=== PATIENT | female | born 1970 | race Caucasian/White ===

== ENCOUNTER 2020-12-13 19:23 | Emergency (ER) | payer OTHER ==
[~2020-12-13] VITALS: Ht 167.6 cm; Wt 69.4 kg
[2020-12-13 19:30] VITALS: BP_SYST 148
[2020-12-13] MEDS ORDERED: BACITRACIN 1 GM OINT TP ONE (20:00)
[2020-12-13] MEDS ORDERED: DIPH-TET-PERTUS Vaccine 0.5 ML VIAL (ADACEL) I.M. ONE (20:00)
[2020-12-13] MEDS ORDERED: PSEU30TA36 PO (20:07)
[2020-12-13] MEDS ORDERED: IBUP-1969 PO (20:07)
[2020-12-13] MEDS ORDERED: ALBMDI INH (20:07)
[2020-12-13 20:25] VITALS: BP_SYST 148
== END 2020-12-13 20:25 | disposition home or self-care (01) ==
LOC: SED 19:23
DX: S01.01XA Laceration without foreign body of scalp, initial encounter (principal); J40 Bronchitis, not specified as acute or chronic; Z79.899 Other long term (current) drug therapy; W22.8XXA Striking against or struck by other objects, initial encounter; Y93.89 Activity, other specified; Y92.89 Other specified places as the place of occurrence of the external cause; Y99.0 Civilian activity done for income or pay
CPT/HCPCS: 71046-TC; 90715; 99283